=== PATIENT | male | born 1945 | race Caucasian/White ===

== ENCOUNTER 2020-04-05 08:29 | Emergency (ER) | payer MEDICARE ==
[~2020-04-05] VITALS: Ht 180.3 cm; Wt 95.4 kg
[2020-04-05 09:02] LABS: HEMATOCRIT 41.9 % (39.0-50.0); IMMATURE GRANULOCYTES 0.2 % (0.0-5.0); MEAN CELL VOLUME 91.5 fL CALC (80.0-100.0); MEAN CORPUSCULAR HGB 30.6 pG CALC (26.0-32.0); MEAN CORPUSCULAR HGB CONC 33.4 g/dL CAL (32.0-36.0); NEUT# 2.62 thou/uL (1.82-7.42); RED BLOOD COUNT 4.58 mill/uL (4.70-6.10); RED CELL DISTRI WIDTH 12.7 % (11.5-15.5)
[2020-04-05] MEDS ORDERED: DEXILANT60 MG PO (09:09)
[2020-04-05] MEDS ORDERED: ASPIRIN 81 LOW81 MG PO (09:09)
[2020-04-05] MEDS ORDERED: PLAVIX75 MG PO (09:09)
[2020-04-05] MEDS ORDERED: LOPRESSOR25 M1 PO (09:10)
[2020-04-05] MEDS ORDERED: ZESTRIL5 M1 PO (09:10)
[2020-04-05] MEDS ORDERED: CRESTOR20 MG PO (09:10)
[2020-04-05 09:24] LABS: ALKALINE PHOSPHATASE 85 u/l (38-126); ANION GAP 10 (6-22 (CALC)); BILIRUBIN, TOTAL 0.7 mg/dL (0.0-1.4); BUN 20 mg/dL (8-23); BUN/CREATININE RATIO 20 (12-20 (CALC)); CARBON DIOXIDE 27 mmol/l (22-30); CHLORIDE 103 mmol/l (95-108); GFR > 60 ML/MIN (>=60 (CALC)); GFR FOR AFR.AMER. > 60 ML/MIN (>=60 (CALC)); LIPASE 105 u/l (23-300); POTASSIUM 4.3 mmol/l (3.5-5.1); SGOT/AST 26 u/l (19-48); SODIUM 136 mmol/l (137-146); TOTAL PROTEIN 6.6 g/dL (6.3-8.2)
[2020-04-05 09:31] LABS: D-DIMER 0.56 mg/L (0.19-0.60)
[2020-04-05 09:53] LABS: ACT PARTIAL THROMBO TIME 21.9 SECONDS (20.0-32.5)
[2020-04-05] MEDS ORDERED: ULTRAM50 MG PO (13:17)
[2020-04-05 13:27] VITALS: BP 140/76
== END 2020-04-05 13:38 | disposition home or self-care (01) ==
LOC: ED 08:29
DX: R07.89 Other chest pain (principal); I10 Essential (primary) hypertension; I25.10 Atherosclerotic heart disease of native coronary artery without angina pectoris; E78.1 Pure hyperglyceridemia; Z86.718 Personal history of other venous thrombosis and embolism; Z95.5 Presence of coronary angioplasty implant and graft; Z20.822 Contact with and (suspected) exposure to COVID-19
CPT/HCPCS: Q9967